=== PATIENT | female | born 1955 | race Caucasian/White ===

== ENCOUNTER 2017-05-08 21:35 | Emergency (ER) | payer OTHER ==
[2017-05-08 21:50] VITALS: BP 173/67
[2017-05-08] MEDS ORDERED: Sulfamethox/Trimethoprim DS 800/160* TAB PO ONE (22:23)
[2017-05-08] MEDS ORDERED: Ondansetron ODT TAB* 4 MG PO ONE (22:23)
[2017-05-08] MEDS ORDERED: Ondansetron TAB* 4 MG PO ONE (22:25)
--- NOTE | 2017-05-10 17:10 | ED ---
Progress - Progress Note Progress Note: pt with neg urine norman 05/10/17 1710 Course/Dx - Diagnoses Provider Diagnoses: Abdominal pain
--- NOTE | 2017-05-12 17:56 | UC ---
Progress - Progress Note Progress Note: pt with neg urine ljj 05/10/17 1710 05/12/17 UCX (-).
--- NOTE | 2017-05-16 17:12 | UC ---
Francis Presley Thomas, scribed for Lisa Lebron DO on 05/08/17 at 2208 . Complaint Female HPI - HPI Summary HPI Summary: The pt is a 62 y/o F presenting to [facility] [place] c/o urinary frequency and lower abd pain that began this afternoon. The pt rates the lower abdominal pain 6/10. She c/o urinary urgency. She has been producing only a small amount of urine today. Earlier today, the patient had L flank pain that was alleviated by a BM. Pt additionally c/o nausea and chills (none at [facility] [place] but some earlier today). Pt denies dysuria, fever, back pain, CP, SOB, vomiting, sore throat, and ear ache. She recently finished a course of Zithromax for a sore throat and nonproductive cough. In the examination room, the patients blood pressure was manually re- checked at 145/80. - History Of Current Complaint Chief Complaint: [facility] [place] Stated Complaint: UTI Time Seen by Provider: 05/08/17 21:53 Hx Obtained From: Patient Onset/Duration: Lasting Hours - onset earlier today, Still Present Timing: Constant Severity Currently: Moderate Pain Intensity: 6 Pain Scale Used: 0-10 Numeric Alleviating Factor(s): Nothing Associated Signs And Symptoms: Positive: Nausea. Negative: Fever, Back Pain, Vomiting(# Of Episodes =) - Allergies/Home Medications Allergies/Adverse Reactions: Allergies Allergy/AdvReac Type Severity Reaction Status Date / Time OTC COLD MEDS Allergy Severe HIVES Uncoded 05/09/17 02:27 AROUND MOUTH PMH/Surg Hx/FS Hx/Imm Hx Previously Healthy: No - Kidney stones, osteoarthritis, kidney cysts Cardiovascular History: Hypertension - Surgical History Surgical History: Yes Surgery Procedure, Year, and Place: LEFT KNEE TRI-LATERAL MENISCUS TEAR 02/04 - Family History Known Family History: Positive: Cardiac Disease - Social History Alcohol Use: Occasionally Substance Use Type: None Smoking Status (MU): Never Smoked Tobacco - Immunization History Most Recent Influenza Vaccination: never Most Recent Tetanus Shot: current Most Recent Pneumonia Vaccination: never Review of Systems Constitutional: Chills Gastrointestinal: Abdominal Pain - lower, Nausea Genitourinary: Frequency, Urgency, Other - Decreased urine production, L flank pain (earlier today but none at [facility] [place]). Is Patient Immunocompromised?: No All Other Systems Reviewed And Are Negative: Yes Physical Exam Triage Information Reviewed: Yes Appearance: Well-Appearing, No Pain Distress, Well-Nourished Vital Signs: Initial Vital Signs Temp 97.2 F 05/08/17 21:48 Pulse 74 05/08/17 21:48 Resp 12 05/08/17 21:48 BP 173/67 05/08/17 21:48 Pulse Ox 100 05/08/17 21:48 Vital Signs Reviewed: Yes Eyes: Positive: Conjunctiva Clear. Negative: Discharge ENT: Positive: Hearing grossly normal. Negative: Muffled/hoarse voice Neck exam: Normal Neck: Positive: Supple Respiratory: Positive: Lungs clear, Normal breath sounds, No respiratory distress, No accessory muscle use Cardiovascular: Positive: RRR, No Murmur Abdomen Description: Positive: Nontender, Soft. Negative: CVA Tenderness (R), CVA Tenderness (L) Musculoskeletal Exam: Normal Neurological: Positive: Alert, Muscle Tone Normal Psychological Exam: Normal Psychological: Positive: Age Appropriate Behavior Skin Exam: Normal Skin: Positive: Other - Warm, dry, normal color Complaint Female Dx - Course Course Of Treatment: The patient is a 62 y/o F c/o urinary frequency, urgency, lower abd pain, and nausea that began today. At triage, her blood pressure was 173/67, so it was manually re-checked and it is 145/80. Medications reviewed this visit. High blood pressure noted. - Differential Dx/Diagnosis Provider Diagnoses: hematuria, abd pain, Elevated blood pressure under poor control, Discharge - Discharge Plan Condition: Stable Disposition: HOME Patient Education Materials: Ondansetron (By mouth), Kidney Stones (ED), Urinary Tract Infection in Women (ED), Hematuria (ED) Referrals: Tricia Pineda MD [Primary Care Provider] - (FOLLOW UP IN 2 DAYS IF NOT IMPROVING. OTHERWISE FOLLOW UP IN 2 WEEKS.) Additional Instructions: WE ARE CONCERNED THAT YOU MAY HAVE AN OBSTRUCTING STONE SINCE YOU ARE NOT VOIDING ALMOST NOTHING, EVEN AFTER DRINKING LARGE AMOUNT OF WATER HERE IN THE CLINIC. WE HAVE OFFERED YOU AN AMBULANCE RIDE BUT YOU HAVE DECLINED. PLEASE GO THERE IMMEDIATELY FOR FURTHER EVALUATION AND TREATMENT. The documentation as recorded by the Francis barrientos Thomas accurately reflects the service I personally performed and the decisions made by me, Lisa Lebron DO.
== END 2017-05-08 22:54 | disposition home or self-care (01) ==
LOC: UCEAST 21:35
DX: R31.9 Hematuria, unspecified (principal); R10.30 Lower abdominal pain, unspecified; R39.15 Urgency of urination; R11.0 Nausea; I10 Essential (primary) hypertension; Z87.442 Personal history of urinary calculi
CPT/HCPCS: 81003; 87086; 87088; 99212; A9270-GY; G0463